=== PATIENT | male | born 1935 | race Caucasian/White ===

== ENCOUNTER 2016-06-14 15:25 | Inpatient (IN) | payer MEDICARE, MEDICAID ==
[~2016-06-14 15:25] MED LIST: AMOXICILLIN875 MG PO; ATIVAN2 MG/1 ML PO; CALCIUM500 M3 PO; COLACE100 M1 PO; DULCOLAX10 MG PR; IRON325 M3 PO; KEFLEX500 M4 PO; LASIX20 M1 PO; LASIX80 M1 PO; MIRALAX17 G2 PO; NEURONTIN300 M1 PO; OXYBUTYNIN CHLOR5 M2 PO; POTASSIUM CHLO10 ME1 PO; POTASSIUM CHLO20 ME3 PO; REQUIP1 M1 PO; REQUIP2 M1 PO; ROXANOL 20MG/ML PO; TYLENOL325 M2 PO; VITAMIN D-32000 UNI3 PO
[2016-06-14] MEDS ORDERED: DEMADEX20 M1 PO (15:41)
[2016-06-14] MEDS ORDERED: TESSALON PERLE100 M1 PO (15:41)
[2016-06-14] MEDS ORDERED: COLCRYS0.6 M1 PO (15:41)
[2016-06-14] MEDS ORDERED: BICALUTAMIDE50 M1 PO (15:43)
[2016-06-14] MEDS ORDERED: ULORIC40 MG/TAB PO (15:43)
[2016-06-14] MEDS ORDERED: ZINC50 M2 PO (16:37)
[2016-06-14] MEDS ORDERED: VITAMIN D32000 UNI3 PO (16:38)
[2016-06-14] MEDS ORDERED: LUPRON DEPOT22.5 MG IM (16:39)
[2016-06-14] MEDS ORDERED: MUCINEX600 M1 PO (16:40)
[2016-06-14] MEDS ORDERED: PROCRIT40000 UNIT SC (16:40)
[2016-06-14 16:56] LABS: ANION GAP 18 mmol/L (0-20); BLOOD UREA NITROGEN 79 mg/dl (6-24); CALCIUM 8.4 mg/dl (8.5-10.5); CARBON DIOXIDE-VENOUS 19 mmol/L (22-32); CHLORIDE 102 mmol/l (96-110); CREATININE 2.84 mg/dl (0.60-1.30); GLUCOSE 133 mg/dL (70-110); SODIUM 135 mmol/L (135-145); eGFR VALUE FOR BLACK 23 mL/Min
[2016-06-14 16:58] LABS: POTASSIUM 3.5 mmol/L (3.7-5.1)
[2016-06-14 17:42] LABS: URINE BILIRUBIN SMALL (NEG); URINE BLOOD LARGE (NEG); URINE GLUCOSE (UA) NEGATIVE (NEG); URINE KETONE NEGATIVE (NEG); URINE LEUKOCYTE ESTERASE POSITIVE (NEG); URINE NITRITE POSITIVE (NEG); URINE PROTEIN MODERATE (NEG); URINE SPECIFIC GRAVITY 1.015 (1.003-1.030)
[2016-06-14 17:51] LABS: URINE APPEARANCE SL CLOUDY; URINE COLOR BROWN
[2016-06-14 17:53] LABS: HGB-HEMOGLOBIN 6.9 gm/dl (13.5-17.0); MCH (MEAN CORPUSCULAR HGB) 27.4 pg (28.0-32.0); MCV (MEAN CELL VOLUME) 82.9 fl (82.0-96.0); RED BLOOD COUNT 2.52 mil/cmm (4.40-5.70); RED CELL DISTRIBUTION WIDTH 22.7 % (12.4-16.4); WHITE BLOOD COUNT 2.7 tho/cmm (4.0-10.0)
[2016-06-14 17:56] LABS: URINE BACTERIA 3+; URINE EPITHELIAL CELLS 0-5 /[HPF] (0-10)
[2016-06-14 17:57] LABS: HCT-HEMATOCRIT 20.9 % (36.0-53.5)
[2016-06-14 18:57] LABS: HGB-HEMOGLOBIN 7.1 gm/dl (13.5-17.0); MCV (MEAN CELL VOLUME) 84.6 fl (82.0-96.0); RED BLOOD COUNT 2.54 mil/cmm (4.40-5.70); RED CELL DISTRIBUTION WIDTH 22.4 % (12.4-16.4); WHITE BLOOD COUNT 2.4 tho/cmm (4.0-10.0)
[2016-06-14 18:59] LABS: HCT-HEMATOCRIT 21.5 % (36.0-53.5)
[2016-06-14 19:02] LABS: PLATELET COUNT 15 tho/cmm (150-450)
[2016-06-14 19:03] LABS: PLATELET COUNT 19 tho/cmm (150-450)
[2016-06-14 19:47] LABS: BASOPHIL % 3 % (0-2); BASOPHIL ABSOLUTE COUNT 0.1 tho/cmm (0.0-0.2); EOSINOPHIL % 1 % (0-7)
[2016-06-15 02:06] LABS: INR 1.1 INR (0.9-1.1); PROTHROMBIN TIME 13.3 SECONDS (9.0-13.6)
[2016-06-15 02:09] LABS: MCV (MEAN CELL VOLUME) 82.3 fl (82.0-96.0); RED CELL DISTRIBUTION WIDTH 20.5 % (12.4-16.4)
[2016-06-15 02:11] LABS: BASO % 11.2 % (0-2); EOS % 4.5 % (0-7); HCT-HEMATOCRIT 41.9 % (36.0-53.5); HGB-HEMOGLOBIN 13.8 gm/dl (13.5-17.0); IMMATURE GRANULOCYTES ABSOLUTE 0.15 tho/cmm (0-0.03); IMMATURE GRANULOCYTES PERCENT 16.9 % (0-0.3); LYMPH % 15.7 % (20-45); MCH (MEAN CORPUSCULAR HGB) 27.1 pg (28.0-32.0); MCHC MEAN CORPUSCULAR HGB CONC 32.9 % (32.0-36.0); MONO % 14.6 % (0-12); NEUTROPHILS % 37.1 % (40-80); RED BLOOD COUNT 5.09 mil/cmm (4.40-5.70)
[2016-06-15 02:12] LABS: BASO ABSOLUTE COUNT 0.1 tho/cmm (0.0-0.2); LYMPH ABSOLUTE COUNT 0.1 tho/cmm (0.8-4.5); MONOCYTE ABSOLUTE COUNT 0.1 tho/cmm (0.0-1.2)
[2016-06-15 02:13] LABS: NEUTROPHIL-AUTOMATED 0.3 tho/cmm (1.6-8.0); PLATELET COUNT 7 tho/cmm (150-450); WHITE BLOOD COUNT 0.9 tho/cmm (4.0-10.0)
[2016-06-15 02:14] LABS: NEUTROPHIL ABSOLUTE COUNT 0.3 tho/cmm (1.6-8.0)
[2016-06-15 02:19] LABS: ALB/GLOB RATIO 0.6 (0.8-2.0); ALKALINE PHOSPHATASE 153 U/L (33-138); ALT/SGPT 50 U/L (12-78); AST/SGOT 61 U/L (10-40); BILIRUBIN,TOTAL 1.8 mg/dl (0.0-1.5); BLOOD UREA NITROGEN 66 mg/dl (6-24); CALCIUM 6.7 mg/dl (8.5-10.5); CARBON DIOXIDE-VENOUS 19 mmol/L (22-32); CHLORIDE 103 mmol/l (96-110); GLUCOSE 106 mg/dL (70-110); SODIUM 135 mmol/L (135-145); eGFR VALUE FOR BLACK 35 mL/Min
[2016-06-15 02:20] LABS: ANION GAP 15 mmol/L (0-20); CREATININE 2.03 mg/dl (0.60-1.30); POTASSIUM 2.3 mmol/L (3.7-5.1)
[2016-06-15 16:11] LABS: MCV (MEAN CELL VOLUME) 82.1 fl (82.0-96.0); RED BLOOD COUNT 3.12 mil/cmm (4.40-5.70); RED CELL DISTRIBUTION WIDTH 20.6 % (12.4-16.4)
[2016-06-15 16:16] LABS: HCT-HEMATOCRIT 25.6 % (36.0-53.5); HGB-HEMOGLOBIN 8.6 gm/dl (13.5-17.0); MCH (MEAN CORPUSCULAR HGB) 27.5 pg (28.0-32.0); MCHC MEAN CORPUSCULAR HGB CONC 33.6 % (32.0-36.0); PLATELET COUNT 11 tho/cmm (150-450); WHITE BLOOD COUNT 2.5 tho/cmm (4.0-10.0)
[2016-06-15 18:42] LABS: BAND % 5 % (0-20); BAND ABSOLUTE COUNT 0.1 tho/cmm (0-2.0); BASOPHIL % 6 % (0-2); BASOPHIL ABSOLUTE COUNT 0.2 tho/cmm (0.0-0.2); BLAST ABSOLUTE COUNT 0.1 tho/cmm (0); EOSINOPHIL % 5 % (0-7)
[2016-06-15 19:18] LABS: HCT-HEMATOCRIT 24.9 % (36.0-53.5); HGB-HEMOGLOBIN 8.3 gm/dl (13.5-17.0); MCH (MEAN CORPUSCULAR HGB) 27.3 pg (28.0-32.0); MCHC MEAN CORPUSCULAR HGB CONC 33.3 % (32.0-36.0); MCV (MEAN CELL VOLUME) 81.9 fl (82.0-96.0); MONO % 26.4 % (0-12); NEUTROPHIL-AUTOMATED (STOP CHECK) tho/cmm (1.6-8.0); RED BLOOD COUNT 3.04 mil/cmm (4.40-5.70); RED CELL DISTRIBUTION WIDTH 20.6 % (12.4-16.4)
[2016-06-15 19:49] LABS: PLATELET COUNT 9 tho/cmm (150-450)
[2016-06-15 19:50] LABS: BASO % 11.2 % (0-2); BASO ABSOLUTE COUNT 0.2 tho/cmm (0.0-0.2); MONOCYTE ABSOLUTE COUNT 0.5 tho/cmm (0.0-1.2)
[2016-06-15 23:49] LABS: ABG CO2 ARTERIAL 14 mmol/L (21-27); ARTERIAL BLD GAS O2 SATURATION 94 % (95-98); ARTERIAL BLOOD GAS PCO2 25 mmHg (32-45); ARTERIAL PO2 76 mmHg (70-100); BICARBONATE 14 mmol/L (21-28); BLOOD GAS BASE EXCESS -11 mM/L (-/+3); PH 7.35 Units (7.35-7.45)
[2016-06-16 03:34] LABS: ALBUMIN 1.8 g/dl (3.5-5.0); ANION GAP 16 mmol/L (0-20); BLOOD UREA NITROGEN 60 mg/dl (6-24); CALCIUM 7.9 mg/dl (8.5-10.5); CARBON DIOXIDE-VENOUS 16 mmol/L (22-32); CHLORIDE 109 mmol/l (96-110); CREATININE 1.86 mg/dl (0.60-1.30); GLUCOSE 104 mg/dL (70-110); MAGNESIUM 1.5 mg/dl (1.3-2.6); PHOSPHOROUS 3.4 mg/dl (2.5-4.9); POTASSIUM 4.1 mmol/L (3.7-5.1); SODIUM 137 mmol/L (135-145); eGFR VALUE FOR BLACK 38 mL/Min
[2016-06-16 03:53] LABS: HCT-HEMATOCRIT 24.4 % (36.0-53.5); HGB-HEMOGLOBIN 8.2 gm/dl (13.5-17.0); MCH (MEAN CORPUSCULAR HGB) 27.2 pg (28.0-32.0); MCHC MEAN CORPUSCULAR HGB CONC 33.6 % (32.0-36.0); MCV (MEAN CELL VOLUME) 81.1 fl (82.0-96.0); RED BLOOD COUNT 3.01 mil/cmm (4.40-5.70); RED CELL DISTRIBUTION WIDTH 20.5 % (12.4-16.4)
[2016-06-16 04:28] LABS: ABG CO2 ARTERIAL 15 mmol/L (21-27); ARTERIAL BLD GAS O2 SATURATION 91 % (95-98); ARTERIAL BLOOD GAS PCO2 24 mmHg (32-45); BICARBONATE 15 mmol/L (21-28); BLOOD GAS BASE EXCESS -9 mM/L (-/+3)
[2016-06-16 04:30] LABS: ARTERIAL PO2 63 mmHg (70-100)
[2016-06-16 04:35] LABS: NEUTROPHIL-AUTOMATED 0.2 tho/cmm (1.6-8.0); PLATELET COUNT 11 tho/cmm (150-450); WHITE BLOOD COUNT 1.9 tho/cmm (4.0-10.0)
[2016-06-16 08:27] LABS: BAND % 9 % (0-20); BAND ABSOLUTE COUNT 0.2 tho/cmm (0-2.0); EOSINOPHIL % 2 % (0-7)
[2016-06-17 05:08] LABS: HGB-HEMOGLOBIN 7.9 gm/dl (13.5-17.0); MCH (MEAN CORPUSCULAR HGB) 27.7 pg (28.0-32.0); MCV (MEAN CELL VOLUME) 81.1 fl (82.0-96.0); RED BLOOD COUNT 2.85 mil/cmm (4.40-5.70); RED CELL DISTRIBUTION WIDTH 20.7 % (12.4-16.4); WHITE BLOOD COUNT 2.3 tho/cmm (4.0-10.0)
[2016-06-17 05:21] LABS: HCT-HEMATOCRIT 23.1 % (36.0-53.5); MCHC MEAN CORPUSCULAR HGB CONC 34.2 % (32.0-36.0)
[2016-06-17 05:22] LABS: PLATELET COUNT 12 tho/cmm (150-450)
[2016-06-17 05:29] LABS: ALBUMIN 1.6 g/dl (3.5-5.0); BLOOD UREA NITROGEN 64 mg/dl (6-24); CALCIUM 7.6 mg/dl (8.5-10.5); CARBON DIOXIDE-VENOUS 17 mmol/L (22-32); CHLORIDE 107 mmol/l (96-110); CREATININE 1.98 mg/dl (0.60-1.30); GLUCOSE 88 mg/dL (70-110); SODIUM 140 mmol/L (135-145); eGFR VALUE FOR BLACK 36 mL/Min
[2016-06-17 05:40] LABS: ANION GAP 19 mmol/L (0-20); POTASSIUM 2.9 mmol/L (3.7-5.1)
[2016-06-17 07:14] LABS: BAND % 19 % (0-20); BAND ABSOLUTE COUNT 0.4 tho/cmm (0-2.0); EOSINOPHIL % 2 % (0-7)
[2016-06-17 07:16] LABS: BLAST % 2 % (0)
== END 2016-06-18 02:20 | disposition expired | DRG 698 ==
LOC: EDMED 15:25 → EMR2 20:28 → PCUA 20:40
PROVIDERS: Emergency Medicine; Internal Medicine; Internal Medicine Hematology & Oncology; Internal Medicine Nephrology; ADMIT Family Medicine
DX: T83.511A Infection and inflammatory reaction due to indwelling urethral catheter, initial encounter (principal); A41.9 Sepsis, unspecified organism; R65.20 Severe sepsis without septic shock; N17.9 Acute kidney failure, unspecified; C79.51 Secondary malignant neoplasm of bone; E87.2 Acidosis; D69.6 Thrombocytopenia, unspecified; N04.9 Nephrotic syndrome with unspecified morphologic changes; N39.0 Urinary tract infection, site not specified; E86.1 Hypovolemia; D53.9 Nutritional anemia, unspecified; E87.6 Hypokalemia; Y84.6 Urinary catheterization as the cause of abnormal reaction of the patient, or of later complication, without mention of misadventure at the time of the procedure; Z85.46 Personal history of malignant neoplasm of prostate
CPT/HCPCS: J1815; J1940; J2060; J2270; J2543; J3370; J3480; J7030; J7050; P9016